=== PATIENT | female | born 1985 ===

== ENCOUNTER 2017-09-03 13:49 | Emergency (ER) | payer BC ==
[2017-09-03 14:04] VITALS: BP 188/105
--- NOTE | 2017-09-03 14:11 | UC ---
Lower Extremity/Ankle HPI - HPI Summary HPI Summary: Patient presents complaining of gradual increasing soreness and swelling to the inside of her right ankle over the past week. She denies any history of injury , fever, rash and warmth. - History of Current Complaint Chief Complaint: UCLowerExtremity Stated Complaint: RT FOOT INJ Time Seen by Provider: 09/03/17 13:58 Hx Obtained From: Patient Hx Last Menstrual Period: 08/20/17 Onset/Duration: Gradual Onset Pain Intensity: 5 Aggravating Factor(s): Ambulation Alleviating Factor(s): Rest Able to Bear Weight: Yes - Allergies/Home Medications Allergies/Adverse Reactions: Allergies Allergy/AdvReac Type Severity Reaction Status Date / Time Penicillins Allergy Hives Verified 09/03/17 14:06 PMH/Surg Hx/FS Hx/Imm Hx Previously Healthy: Yes - Surgical History Surgical History: None - Family History Known Family History: Positive: Cardiac Disease, Diabetes - Social History Occupation: Employed Full-time Lives: With Family Alcohol Use: Occasionally Substance Use Type: None Smoking Status (MU): Never Smoked Tobacco - Immunization History Vaccination Up to Date: Yes Review of Systems Constitutional: Negative Skin: Negative Eyes: Negative ENT: Negative Respiratory: Negative Cardiovascular: Negative Gastrointestinal: Negative Genitourinary: Negative Motor: Other - swelling inside of R ankle Neurovascular: Negative Musculoskeletal: Negative Neurological: Negative Psychological: Negative Is Patient Immunocompromised?: No All Other Systems Reviewed And Are Negative: Yes Physical Exam Triage Information Reviewed: Yes Appearance: Well-Appearing Vital Signs: Initial Vital Signs Temp 97.9 F 09/03/17 14:00 Pulse 96 09/03/17 14:00 Resp 16 09/03/17 14:00 BP 188/105 09/03/17 14:00 Pulse Ox 99 09/03/17 14:00 Vital Signs Reviewed: Yes Eyes: Positive: Conjunctiva Clear ENT: Positive: Normal ENT inspection Neck: Positive: Supple, Nontender, No Lymphadenopathy Respiratory: Positive: Lungs clear, Normal breath sounds Cardiovascular: Positive: RRR, No Murmur Abdomen Description: Positive: Nontender, No Organomegaly, Soft Bowel Sounds: Positive: Present Musculoskeletal: Positive: Other: - Mild swelling with tenderness R medial ankle , anterior to fibula c/w bursitis. No bony tenderness. Painless full rom to joint. areas above and below site are unremarkable. foot has full s/v/m function. Neurological: Positive: Alert Psychological: Positive: Age Appropriate Behavior Skin Exam: Normal Lower Extremity Course/Dx - Course Course Of Treatment: no concern for infection, fx. c/w bursitis. will tx with jimenez, nsaid and ortho f/u. - Differential Dx/Diagnosis Provider Diagnoses: Bursitis R medial malleolus Discharge - Sign-Out/Discharge Documenting (check all that apply): Patient Departure - Discharge Plan Condition: Stable Disposition: HOME Prescriptions: Naproxen [Naproxen 500 mg tab] 500 mg PO BID #14 tablet. Patient Education Materials: Ankle Bursitis (ED) Referrals: Louis Liao MD [Medical Doctor] - As Soon As Possible Additional Instructions: JIMENEZ FOR COMFORT - Billing Disposition and Condition Condition: STABLE Disposition: Home
== END 2017-09-03 14:29 | disposition home or self-care (01) ==
LOC: UCCORT 13:49
DX: M77.51 Other enthesopathy of right foot and ankle (principal)
CPT/HCPCS: 99202; G0463